=== PATIENT | female | born 1970 | race African-American/Black ===

== ENCOUNTER 2020-08-27 14:33 | Emergency (ER) | payer MEDICARE ==
[~2020-08-27] VITALS: Ht 167.6 cm; Wt 81.0 kg
--- NOTE | 2020-08-27 14:48 | NUR ---
ERMD AT BEDSIDE FOR EVALUATION.
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
--- NOTE | 2020-08-27 14:53 | NUR ---
PATIENT DENIES SI/HI AT THIS TIME, DENIES PAIN.
--- NOTE | 2020-08-27 15:03 | NUR ---
DEPUTY CLERK OF SUPERIOR COURT AT BEDSIDE TO DRAW BLOOD, PATIENT REFUSING TO HAVE BLOOD DRAWN, STATES "I JUST HAD MY BLOOD DRAWN AT [facility], YOU CAN CALL [facility] AND GET MY BLOOD, YOU'RE NOT DRAWING MY BLOOD AGAIN, FUCK YOU." ERMD NOTIFIED.
--- NOTE | 2020-08-27 15:11 | NUR ---
PATIENT TRYING TO LEAVE, STATING "THE DOCTOR SAID I COULD GO." UNABLE TO REDIRECT PATIENT INTO GOING BACK INTO HER ROOM, SECURITY CALLED AND ESCORTED PATIENT BACK TO ROOM. PATIENT STATES "GOD IS GOING TO FUCK Y'ALL UP."
--- NOTE | 2020-08-27 15:25 | NUR ---
WARM BLANKET PROVIDED TO PATIENT.
[2020-08-27] MEDS ORDERED: LORazepam 1MG TABLET PO PRN (15:30)
[2020-08-27] MEDS ORDERED: OLANZAPINE 10 MG INJ IM PRN ×2 (15:30→16:30)
[2020-08-27] MEDS ORDERED: OLANZAPINE ODT 10MG PO ONE (15:30)
[2020-08-27] MEDS ORDERED: OLANZAPINE ODT 10MG ONE (15:47)
[2020-08-27] MEDS ORDERED: LORazepam 1MG TABLET ONE (15:47)
--- NOTE | 2020-08-27 15:49 | NUR ---
PATIENT COMING OUT OF ROOM TRYING TO LEAVE, REDIRECTED BACK TO ROOM, SITTER IN LINE OF SIGHT. PULLED MEDICATION FROM OMNICELL, PATIENT REFUSING MEDS, STATES "YOU'RE NOT GIVING ME ANY MEDICATION, I'LL THROW IT RIGHT BACK AT YOU, I'M CALM GOING TO BED, NIGHT NIGHT, THEY ALREADY GAVE ME MEDICATION YOU'RE NOT GOING TO OVERDOSE ME." PATIENT THEN PUT THE BLANKET OVER HER HEAD.
--- NOTE | 2020-08-27 16:45 | NUR ---
PATIENT RESTING IN [place]NEY WITH BLANKET OVER HER HEAD, SUICIDE PRECAUTIONS IN PLACE, SITTER IN LINE OF SIGHT, WAITING FOR PATIENT TO BE MEDICALLY CLEARED.
--- NOTE | 2020-08-27 17:51 | NUR ---
PATIENT RESTING IN [facility], PATIENT STILL REFUSING LABS, TO LEAVE URINE SAMPLE AND MEDICATIONS, SUICIDE PRECAUTIONS IN PLACE, AND SITTER IN LINE OF SIGHT.
--- NOTE | 2020-08-27 18:09 | NUR ---
MABERTER CAME TO RN AND STATED "PATIENT IS UNDER BED." WENT INTO PATIENT'S ROOM AND SHE WAS SHELTER UNDER ONE OF THE GARAGE DOORS, PATIENT ABLE TO BE REDIRECTED OUT FROM UNDERNEATH GARAGE DOOR AND BACK INTO [facility], BLUE SWEATER LOCKED IN CABINET AND WARM BLANKETS PROVIDED TO PATIENT. PATIENT STILL REFUSING TO COOPERATE WITH STAFF FOR LABS OR MEDICATIONS. SUICIDE PRECAUTIONS IN PLACE, ELISA IN LINE OF SIGHT.
--- NOTE | 2020-08-27 19:06 | NUR ---
RECIEVED REPORT FROM GUILLE MCLEAN.
--- NOTE | 2020-08-27 20:03 | NUR ---
Patient is resting comfortably in bed. Bed in lowest, rails engaged, call light on lap. Vital Signs within normal limits. WCTM. SAFETY PRECAUTIONS PUT INTO PLACE. GARAGE DOORS AND BELONGINGS SECURED. SITTER OUTSIDE ROOM FOR SAFETY MONITORING.
[2020-08-27] MEDS ORDERED: OLANZAPINE ODT 10MG PO SCH (21:00)
--- NOTE | 2020-08-27 21:16 | NUR ---
Patient is SLEEPING comfortably in bed. EYES CLOSED. Bed in lowest, rails engaged, call light on lap. Vital Signs within normal limits. WCTM.
--- NOTE | 2020-08-27 21:37 | NUR ---
PT REFUSING MEDICATIONS, PT REFUSING LABS. PT IS REFUSING VITAL SIGNS. PT ATTEMPTING TO ESCAPE AND RUNNING DOWN HALLWAY. PT WAS ABLE TO BE REDIRECTED BACK INTO ROOM. SAFETY PRECAUTIONS PUT INTO PLACE. GARAGE DOORS AND BELONGINGS ARE SECURED. SITTER OUTSIDE ROOM FOR MONITORING. PT ASKED IF SHE WANTS ANY FOOD OR DRINKS BUT REFUSED. PT ORIENTED TO [facility] BUT BELIEVES SHE IS BEING HELD HOSTAGE IN [facility]. PT IS NOT HAPPY WITH SITUATION. PT STATES " WE ARE OUT TO GET HER AND SAYS TO GET LABS FROM [facility]. NADN. BREATHING EVEN AND UNLABORED. WCTM.
--- NOTE | 2020-08-27 21:54 | NUR ---
AT BEDSIDE. PT CONTINUES TO REFUSE ALL INTERVENTIONS.
--- NOTE | 2020-08-27 23:30 | NUR ---
LATE ENTRY DUE TO WRITING NOTE ON WRONG PT PT ASKED IF SHE WAS READY TO HAVE LABS, MEDS, AND VITALS DONE BUT REFUSED. PT RESTING IN BED. ALERT. BVREATIHNG EVEN AND UNLABORED. NADN. SAME SAFETY PRECAUTIONS PUT INTO PLACE. WCTM.
--- NOTE | 2020-08-28 00:39 | NUR ---
PT REFUSED LABS, VITALS, AND MEDICATIONS AGAIN. PT ASKED IF SHE WANTED FOOD BUT SAID SHE HAS NO APPETITE. PT ASKED IF SHE NEEDED TO USE THE BATHROOM AND SHE SAID SHE DID NOT NEED TO. PT SAID SHE WILL LET ME KNOW WHEN SHE IS READY. WCTM. NADN. BREATHING EVEN AND UNLABORED.
--- NOTE | 2020-08-28 02:32 | NUR ---
PT ASKED IF SHE WAS READY TO DRAW BLOOD AND CONTINUE THE REST OF THE INTERVENTIONS. PT STATES " WHY DO PETERU WANT MY BLOOD, YOU GUYS ARE GOING TO CLONE ME." TOLD THE PATIENT THAT WAS NOT THE CASE. PT INSISTED SHE WAS GOING TO BE CLONED AND BEGAN TO GET AGITATED. PT DID NOT WANT ANY FOOD AND DID NOT NEED TO URINATE. NADN. BREATHING EVEN AND UNLABORED. SAME SAFETY PRECAUTIONS PUT INTO PLACE. WCTM
--- NOTE | 2020-08-28 04:34 | NUR ---
Patient is sleeping comfortably in bed. eyes closed. Bed in lowest, rails engaged, call light on lap. Breathing even and unlabored. WCTM. SAFETY PRECAUTIONS PUT INTO PLACE. GARAGE DOORS AND BELONGINGS SECURED. SITTER OUTSIDE ROOM FOR SAFETY MONITORING
--- NOTE | 2020-08-28 05:11 | NUR ---
HOURLY ROUND. PT IS BREATHING EVEN AND UNLABORED. PT APPEARS PARANOID, AGITATED AND ANXIOUS WHEN ASKED QUETSIONS ABOUT BLOOD DRAWS, MEDICATIONS, AND VITALS. PT REPEATEDLY STATES, "DO YOU NOT KNOW THE WORD NO." ASKED PT IF THIS NURSE COULD GET A SET OF VITALS AND CALMLY PUT A BP CUFF ON BUT THE PT SCREAMED "NO, DO NOT TOUCH ME, I KNOW WHAT YOU GUYS ARE TRYING TO DO TO ME." SAME SAFETY PRECAUTIONS ARE IN PLACE. WCTM
--- NOTE | 2020-08-28 06:49 | NUR ---
REPORT FROM JONAH, ASSUME CARE OF PT AT THIS TIME.
--- NOTE | 2020-08-28 06:55 | NUR ---
GAVE REPORT TO TRIPP MCLEAN. TRANSFER OF CARE.
--- NOTE | 2020-08-28 08:32 | NUR ---
PT REFUSING MEAL TRAY. SITTER AT DOORWAY FOR CLOSE OBS.
--- NOTE | 2020-08-28 08:54 | NUR ---
SUICIDE REASSEMENT COMPLETED. PT ANSWERS NO TO ALL QUESTIONS. ATTEMPT TO GET VS, PT REFUSING AT THIS TIME. PT WITH MULTIPLE PARANOID STATEMENTS TO STAFF CONSISTENT WITH WHAT WAS SAID DURING NOC SHIFT. PT PARANOID, THINKS WE ARE MEDICATING FOOD AND TRYING TO CLONE HER. ELISA REMAINS AT BS.
--- NOTE | 2020-08-28 09:44 | NUR ---
PT SLEEPING INTERMITTENTLY. AWAITING PSYCH LEARNING DEVELOPER TO SEE. SITTER AT DOORWAY.
--- NOTE | 2020-08-28 11:14 | NUR ---
PT AMBULATORY TO BR PRN BUT REFUSES TO COLLECT URINE SPECIMEN. PT CONTINUES TO SLEEP INTERMITTENTLY AND REFUSING MEAL TRAY. SITTER AT DOORWAY FOR CLOSE OBS.
--- NOTE | 2020-08-28 12:37 | NUR ---
ED DIET TRAY ORDERED. PT RESTING IN ROOM. SITTER AT DOORWAY.
--- NOTE | 2020-08-28 13:33 | NUR ---
MEAL TRAY PROVIDED. SITTER AT DOORWAY.
--- NOTE | 2020-08-28 14:07 | NUR ---
BEDSIDE REPORT FROM CHEMA. PT RESTING IN BED. NADN. SITTER AT BEDSIDE. SAFTEY PRECAUTIONS IN PLACE.
--- NOTE | 2020-08-28 14:47 | NUR ---
PT ASLEEP WITH EVEN AND UNLABORED RESPIRATIONS. FAMILY TO VISIT IN HOPES PT WILL PARTIPATE AND BE COOPRATIVE IN CARE
--- NOTE | 2020-08-28 16:39 | NUR ---
family at bedside in attempts to have patient partipate and cooperate in plan of car.
--- NOTE | 2020-08-28 17:11 | NUR ---
PT SITTING UP IN BED WITH FAMILY. PT REFUSING CARE AND TESTS.
[2020-08-28] MEDS ORDERED: OLANZAPINE ODT 10MG ONE (18:37)
[2020-08-28 18:41] LABS: BASOPHILS % (AUTO) 0 % (0-1); EOSINOPHILS % (AUTO) 0 % (1-7); LYMPHOCYTES % (AUTO) 40 % (22-44); MEAN CORPUSCULAR HEMOGLOBIN 35.8 pg (27.0-34.8); MEAN CORPUSCULAR HGB CONC 33.6 g/dL (32.4-35.8); MEAN PLATELET VOLUME 8.5 fL (7.4-10.4); MONOCYTES % (AUTO) 9 % (2-9); NEUTROPHILS % (AUTO) 50 % (42-75); PLATELET COUNT 74 x10^3/uL (130-400); RED BLOOD COUNT 3.63 x10^6/uL (3.82-5.3); RED CELL DISTRIBUTION WIDTH 17.6 % (9.6-15.2)
[2020-08-28 18:51] LABS: ALBUMIN 3.1 g/dL (3.4-5.0); ANION GAP 9 mmol/L (5-15); CALCIUM 8.6 mg/dL (8.5-10.1); CHLORIDE 103 mmol/L (98-107); SALICYLATE LEVEL 7.1 mg/dL (2.8-20.0)
[2020-08-28 18:56] LABS: AMPHETAMINE SCREEN, URINE Positive (Negative); BARBITURATE SCREEN, URINE Negative (Negative); BENZODIAZEPINE SCREEN, URINE Negative (Negative); CANNABINOID SCREEN, URINE Negative (Negative); COCAINE SCREEN, URINE Negative (Negative); METHADONE SCREEN, URINE Negative (Negative); OPIATE SCREEN, URINE Negative (Negative)
[2020-08-28 18:57] LABS: ALANINE AMINOTRANSFERASE 125 U/L (12-78); ALKALINE PHOSPHATASE 116 U/L (45-117); CREATININE 0.56 mg/dL (0.55-1.02); TOTAL PROTEIN 6.9 g/dL (6.4-8.2)
--- NOTE | 2020-08-28 18:59 | NUR ---
REPORT RECIEVED FROM VINAY PEÑA. PT RESTING IN [facility], RESP EVEN/UNLABORED, IN LINE OF SIGHT OF ELISA
[2020-08-28 19:30] VITALS: BP 113/77
--- NOTE | 2020-08-28 21:07 | NUR ---
pt resting in gurny, resp even/unlabored, in line of sight of christa
[2020-08-28] MEDS ORDERED: OLANZAPINE 10 MG TABLET ONE (21:15)
--- NOTE | 2020-08-28 21:45 | NUR ---
pt refusing nightime zyprexa, states she does not want [place] meds and just wants this rn to leave. pt restin in gurney, in line of sight of sitter. pt calm at this time
--- NOTE | 2020-08-28 22:26 | NUR ---
report given to roger redd in [facility]
== END 2020-08-28 23:10 ==
LOC: ED 18:33 → EDIP 23:15 → UNDOADMOB 23:15 → ED 08-28 23:10
DX: F28 Other psychotic disorder not due to a substance or known physiological condition (principal); F60.0 Paranoid personality disorder; F10.10 Alcohol abuse, uncomplicated; F15.10 Other stimulant abuse, uncomplicated; Z20.822 Contact with and (suspected) exposure to COVID-19; F20.9 Schizophrenia, unspecified; Y90.0 Blood alcohol level of less than 20 mg/100 ml
CPT/HCPCS: 36415; 80053; 80299; 80307; 80320; 80329; 84703; 85025; 87635; 99285; G0480